=== PATIENT | female | born 1965 | race African-American/Black ===

== ENCOUNTER 2017-03-13 17:19 | Emergency (ER) | payer MEDICARE, MEDICAID ==
[~2017-03-13] VITALS: Ht 157.5 cm; Wt 63.0 kg
[2017-03-13] MEDS ORDERED: AMLODIPINE 5MG TABLET PO ONE (18:30)
[2017-03-13] MEDS ORDERED: IBUPROFEN 600MG TABLET PO ONE (18:30)
[2017-03-13 19:39] VITALS: BP 169/103
== END 2017-03-13 20:03 | disposition home or self-care (01) ==
LOC: ER 17:19
DX: S09.90XA Unspecified injury of head, initial encounter (principal); I16.0 Hypertensive urgency; I10 Essential (primary) hypertension; Y08.89XA Assault by other specified means, initial encounter; Y93.89 Activity, other specified; Y92.89 Other specified places as the place of occurrence of the external cause; Y99.8 Other external cause status; Z98.890 Other specified postprocedural states
CPT/HCPCS: 70450; 99284

== ENCOUNTER 2023-05-19 10:54 | Emergency (ER) | payer MEDICARE, MEDICAID ==
[~2023-05-19] VITALS: Ht 165.1 cm; Wt 70.0 kg
[2023-05-19 11:08] VITALS: TEMP 98.6; O2SAT 100
[2023-05-19] MEDS ORDERED: KETOROLAC 30MG/ML VIAL IM ONE (11:45)
[2023-05-19] MEDS ORDERED: DEXAMETHASONE 10 MG/ML VIAL IM ONE (12:00)
[2023-05-19] MEDS ORDERED: NAPR-1176 MT (12:04)
[2023-05-19] MEDS ORDERED: HYDROCODONE/ACETAMINOPHEN 5/325MG TABLET PO ONE (12:15)
[2023-05-19] MEDS ORDERED: HYDROCODONE/ACETAMINOPHEN 5/325MG TABLET PO NR (15:00)
[2023-05-19] MEDS ORDERED: KETOROLAC 30MG/ML VIAL IM NR (15:00)
[2023-05-19] MEDS ORDERED: DEXAMETHASONE 10 MG/ML VIAL IM NR (15:00)
[2023-05-19 15:39] LABS: CLARITY URINE CLEAR (CLEAR); COLOR URINE YELLOW (YELLOW); GLUCOSE URINE NEGATIVE (NEGATIVE); KETONES URINE NEGATIVE (NEGATIVE); LEUKOCYTE ESTERASE URINE NEGATIVE (NEGATIVE); NITRITE URINE NEGATIVE (NEGATIVE); OCCULT BLOOD URINE NEGATIVE (NEGATIVE); PH URINE 5.5 (4.5-8.0); PROTEIN URINE NEGATIVE (NEGATIVE); SPECIFIC GRAVITY URINE 1.016 (1.005-1.030); UROBILINOGEN URINE 0.2 E.U./dL (0.2-1.0)
[2023-05-19 17:03] VITALS: BP 181/93; PULSE 63; RESP 14
== END 2023-05-19 17:07 | disposition home or self-care (01) ==
LOC: ER 11:46
DX: M54.50 Low back pain, unspecified (principal); I11.9 Hypertensive heart disease without heart failure; Z98.890 Other specified postprocedural states
CPT/HCPCS: 99284; 81003; 96372; J1100; J1885